=== PATIENT | female | born 1970 | race Caucasian/White ===

== ENCOUNTER 2016-09-17 08:39 | Emergency (ER) | payer OTHER ==
[2016-09-17 09:03] VITALS: BP 91/57; PULSE 82; RESP 16; TEMP 98.1; O2SAT 99
--- NOTE | 2016-09-17 09:04 | UCPHY ---
H & P Time Seen by Provider: 09/17/16 08:47 Patient Type: New HPI/ROS: HPI Right knee popped. 45-year-old female by private vehicle with her . This patient reports she was getting out of bed and twisted her right leg over the bed in a lateral direction. She felt a pop. She saw that her patella had dislocated laterally. She then moved her leg back and the patella spontaneously reduced to its anatomical position. She denies any significant pain at this time. She is able to weight bear on the right lower extremity without any significant discomfort. No numbness or weakness distally. No other complaint. This has not happened to her in the past. ROS: Constitutional: No fever, no chills. No weakness. Musculoskeletal: As above Neurological: No focal weakness or altered sensation. Past medical history: No significant past medical history. Social history: Here with her . Nonsmoker. Physical Exam: General Appearance: Alert, no distress. This patient is responding to questions appropriately and in full sentences. This patient appears well- hydrated and well-nourished. Eyes: Pupils equal and round no pallor or injection. No lid edema, erythema or injection. Right knee exam: There is no effusion. The patella is anatomically aligned. No tenderness on palpation over the medial joint line and lateral joint line of the knee. No tenderness on palpation or swelling over the distal quadriceps insertion and patella tendon. The knee joint is stable to valgus and varus stress and anterior and posterior drawer testing. The right lower extremity is neurovascularly intact. Neurological: Motor sensory function is grossly intact. Cranial nerves are normal. Gait is normal. Skin: Warm and dry, no rashes. No lacerations or abrasions. Extremities are symmetrical. All joints range without pain or impingement. Database: EKG: Imaging: Procedures: Emergency department course: After my evaluation, the patient was placed in a right knee immobilizer brace. Plan will be to have her follow up with Orthopedics for re-evaluation and prescribed physical therapy. She feels comfortable with this plan. She feels comfortable going home. Follow-up and return to Urgent Care precautions reviewed with her and her . All of their questions were answered. She was discharged in good condition. Differential Diagnosis: The differential diagnosis on this patient includes but is not limited to right patella dislocation. Significant ligamentous or tendon injury, fracture unlikely. This represents a partial list of diagnoses considered. These considerations are based on history, physical exam, past history and reassessment. Constitutional: Initial Vital Signs Temperature (C) 36.7 C 09/17/16 09:01 Heart Rate 82 09/17/16 09:01 Respiratory Rate 16 09/17/16 09:01 Blood Pressure 91/57 L 09/17/16 09:01 O2 Sat (%) 99 09/17/16 09:01 O2 Delivery Mode Room Air Allergies/Adverse Reactions: No Known Allergies Allergy (Unverified 09/17/16 09:01) Home Medications: Medication Instructions Recorded NK [No Known Home Meds] 09/17/16 Departure - Departure Disposition: Home, Routine, Self-Care Clinical Impression: Dislocation of right patella Condition: Good Instructions: Patellar Dislocation (ED), Knee Immobilizer (ED) Additional Instructions: Read and follow provided instructions. Weight bear as tolerated with brace in place when ambulating. Follow-up with Orthopedics as discussed in 1-2 days for re-evaluation. You will likely be prescribed physical therapy for treatment. Ibuprofen dosin mg every 6 hours with meals for the next 2-3 days only. Take only as needed for pain and swelling. Return to the emergency department for worsening pain, subluxation or dislocation of the patella, swelling, discoloration or other serious concerns. Referrals: Ralph Allen MD [Medical Doctor] - As per Instructions - PQRS PQRS Measurement: Not applicable.
== END 2016-09-17 09:15 | disposition home or self-care (01) ==
LOC: CED 08:39
DX: S83.004A Unspecified dislocation of right patella, initial encounter (principal); X50.0XXA Overexertion from strenuous movement or load, initial encounter; Y92.013 Bedroom of single-family (private) house as the place of occurrence of the external cause; Y93.89 Activity, other specified
CPT/HCPCS: 99203-PO; G0463-PO; L1830